=== PATIENT | female | born 1955 | race American Indian/Alaskan Native ===

== ENCOUNTER 2018-07-21 09:18 | Day surgery (SDC) | payer BC ==
[2018-07-21] MEDS ORDERED: ECOTRIN PO ONE (09:53)
[2018-07-21] MEDS ORDERED: NACL 0.9% 500 ML 500 ML IV SCH (10:00)
[2018-07-21 10:25] LABS: Basophils # (Auto) 0.1 K/mm3 (0.0-0.1); Basophils % (Auto) 0.6 % (0.0-1.8); Eosinophils # (Auto) 0.2 K/mm3 (0.0-0.4); Eosinophils % (Auto) 1.7 % (0.0-4.3); Hematocrit 42.2 % (30.3-42.9); Lymphocytes % (Auto) 21.9 % (13.4-35.0); Mean Corpuscular HGB Conc 33 % (30-34); Mean Corpuscular Volume 82 fl (79-97); Monocytes # (Auto) 0.3 K/mm3 (0.0-0.8); Monocytes % (Auto) 3.5 % (0.0-7.3); Platelet Count 264 K/mm3 (140-440); Red Blood Count 5.17 M/mm3 (3.65-5.03); Red Cell Distribution Width 14.6 % (13.2-15.2)
[2018-07-21 10:36] LABS: INR 0.87 (0.87-1.13)
[2018-07-21 10:52] LABS: BUN/Creatinine Ratio 26; Blood Urea Nitrogen 13 mg/dL (7-17); Calcium 8.6 mg/dL (8.4-10.2); Hemolysis Index 11
[2018-07-21 10:54] LABS: Partial Thromboplastin Time 23.5 Sec. (24.2-36.6)
[2018-07-21] MEDS ORDERED: XYLOCAINE 2% INFILTRATI ONE (12:43)
[2018-07-21] MEDS ORDERED: NITROGLYCERIN SYRINGE 0 ML ONE (12:43)
[2018-07-21] MEDS ORDERED: HEPARIN/NS 5000 UNIT/500ML(CATH LAB) 1,000 ML IR ONE (12:43)
[2018-07-21] MEDS ORDERED: HEPARIN 10,000 UNITS/10 ML ONE (12:43)
[2018-07-21] MEDS ORDERED: VERSED ONE (13:07)
[2018-07-21] MEDS: SUBLIMAZE ONE ×2 (13:41→13:46)
--- NOTE | 2018-07-21 14:37 | Cardiac Catherization Report ---
REASON FOR PROCEDURE: Shortness of breath. PROCEDURES: 1. Right heart catheterization. 2. Left heart catheterization. 3. Selective left and right coronary angiography. 4. Left ventricular angiography. 5. Sedation time, start 1340, end 1402. The patient was prepped and draped in a sterile fashion after informed consent. The right femoral artery and vein were both entered using Seldinger technique. A 6-Prydeinig sheath was placed in the artery and an 8-Prydeinig sheath in the vein. A Hawley-Nilam catheter was then advanced to the pulmonary artery position. A pigtail catheter was advanced in the left ventricle. Cardiac output was measured using the thermodilution method. Simultaneous right and left heart filling pressures were measured, following which the Hawley-Nilam catheter was withdrawn, right heart pressures were recorded on pullback. Left ventricle angiography was then performed following which the pigtail catheter was withdrawn across the aortic valve and transaortic gradient recorded. We then performed selective left and right coronary angiography. The catheters were then withdrawn, the arterial sheath withdrawn, and hemostasis achieved using an Angio-Seal device. The venous sheath was withdrawn. Hemostasis achieved using manual compression. The patient was returned to the postprocedure unit in stable condition. There were no complications. FINDINGS: HEMODYNAMICS: Mean right atrial pressure was 10. Right ventricular pressure 55/15. Pulmonary artery pressure 55/30. The mean pulmonary artery wedge pressure was 20. Left ventricular end-diastolic pressure was 18-20. Ascending aortic pressure 142/77. There was no significant pressure gradient on pullback across the aortic valve. Cardiac output was 4.09 liters per minute. CORONARY ANGIOGRAPHY: Left main coronary artery was without significant disease. Left anterior descending artery and its diagonal branches contained mild luminal irregularities. The circumflex artery and its obtuse marginal branches contained mild luminal irregularities. The right coronary artery was dominant. There was [id number] calcification around the ostium of the right coronary artery, associated with mild ostial narrowing. Otherwise, this vessel was free of significant disease. The left ventricle was moderately to severely dilated. There was moderately severe left ventricular systolic dysfunction with diffuse hypokinesis. Left ventricular ejection fraction estimated at 30-35%. CONCLUSION: 1. Normal right heart filling pressures, mild increase in left heart filling pressures. 2. Moderate to moderately severe pulmonary hypertension with pulmonary artery systolic pressure of 50-55. 3. Mild ostial narrowing of the right coronary artery associated with periosteal calcification, otherwise no significant coronary artery disease. 4. Dilated nonischemic cardiomyopathy, moderately severe left ventricular systolic dysfunction, ejection fraction 30-35%. RECOMMENDATIONS: Medical therapy for nonischemic cardiomyopathy and systolic heart failure. JOB# [id number] CA/NTS
--- NOTE | 2018-07-21 14:40 | Discharge Summary ---
Short Stay Discharge Plan Activity: advance as tolerated Diet: low fat, low cholesterol, low salt, diabetic Wound: keep clean and dry Special Instructions: no heavy lifting (3 days), hold Metformin (48hrs) Additional Instructions: HOLD METFORMIN FOR 48HRS ONLY Follow up with: VAISHNAVI LUCIANO MD [Primary Care Provider] - 7 Days ALFREDO GAY MD [Staff Physician] - 7 Days
[2018-07-21] MEDS ORDERED: TYLENOL PO ONE (14:42)
[2018-07-21] MEDS ORDERED: NACL 0.9% 1000 ML 1,000 ML IV SCH (15:00)
[2018-07-21 18:50] VITALS: BP 117/90
== END 2018-07-21 09:19 | disposition home or self-care (01) ==
LOC: CATHLABREC 09:18
PROVIDERS: ATTEND Internal Medicine Cardiovascular Disease
DX: R94.31 Abnormal electrocardiogram [ECG] [EKG] (principal); I25.10 Atherosclerotic heart disease of native coronary artery without angina pectoris; I27.20 Pulmonary hypertension, unspecified; I42.0 Dilated cardiomyopathy; E78.00 Pure hypercholesterolemia, unspecified; I10 Essential (primary) hypertension; J45.909 Unspecified asthma, uncomplicated; Z79.899 Other long term (current) drug therapy; Z98.890 Other specified postprocedural states
CPT/HCPCS: 36415; 80048; 82962; 85025; 85610; 85730; 93005; 93010; 93460; 99156; C1760; C1894; J1644; J2250; J3010; J7040; Q9967